=== PATIENT | female | born 1940 | race Caucasian/White ===

== ENCOUNTER → 2018-02-13 | Outpatient (CLI) | payer OTHER, MEDICARE | LOC: RAD 11:28 | DX: J44.9 Chronic obstructive pulmonary disease, unspecified (principal); R91.8 Other nonspecific abnormal finding of lung field; M40.294 Other kyphosis, thoracic region ==

== ENCOUNTER → 2018-06-08 | Outpatient (CLI) | payer OTHER, MEDICARE ==
[2018-06-08 12:34] LABS: CALCIUM 9.2 mg/dL (8.5-10.1); CREATININE 0.8 mg/dL (0.6-1.0); POTASSIUM 4.2 mmol/L (3.5-5.1)
== END ==
LOC: CAT 11:38
PROVIDERS: Nurse Practitioner
DX: G45.9 Transient cerebral ischemic attack, unspecified (principal); I77.810 Thoracic aortic ectasia; H54.62 Unqualified visual loss, left eye, normal vision right eye

== ENCOUNTER 2018-12-02 11:41 | Inpatient (IN) | payer OTHER, MEDICARE ==
[~2018-12-02] VITALS: Ht 152.4 cm; Wt 65.3 kg
[2018-12-02 12:29] VITALS: BP 135/61
[2018-12-02 13:14] LABS: HEMATOCRIT 40.3 % (37.0-47.0); HEMOGLOBIN 13.6 gm/dL (12.0-15.0); MCH 32.7 pg (26.0-34.0); MCHC 33.8 g/dL (28.0-37.0); MCV 96.7 fL (80.0-100.0); RBC 4.17 mil/uL (4.20-5.00); RDW 15.6 % (10.5-14.5); WBC 11.3 thou/uL (4.0-11.0)
[2018-12-02 13:34] LABS: ALBUMIN 3.2 g/dL (3.4-5.0); CREATININE 0.9 mg/dL (0.6-1.0); POTASSIUM 4.5 mmol/L (3.5-5.1); TOTAL BILIRUBIN 0.6 mg/dL (<0.1-1.0); TOTAL PROTEIN 6.5 g/dL (6.4-8.2)
[2018-12-02 13:49] VITALS: BP 114/64
[2018-12-02] MEDS ORDERED: SYNTHROID75 MCG PO (15:04)
[2018-12-02] MEDS ORDERED: PREDNISONE 10 M10 MG PO (15:05)
--- NOTE | 2018-12-02 16:11 | NUR ---
PATIENT ARRIVE DIRECT ADMISSION FROM DR SEYMOUR'S OFFICE FOR PNEUMONIA AND HYPOXIA. A/OX4, LUNGS COURSE WITH NON PRODUCTIVE COUGH WITH POOR EFFECTIVENESS. EDEMA IN BILATERAL LE. UP WITH ASSITANCE X1 SOA WHEN AMBULATING. USES WALKER AT HOME BUT RECENTLY USING WHEELCHAIR. ADMISSION ASSESMENT AND HISTORY COMPLETED. ORDERS ACKNOWLDGED AND IMPLIMEMENT. FALL PRECAUTION IN PLACE. CALL LIGHT IN REACH.
[2018-12-02 20:34] VITALS: BP 127/57
--- NOTE | 2018-12-03 02:27 | NUR ---
Assumed care at 1845. Pt resting in bed with family at bedside. Family requested breathing treatment to PRN instead of scheduled. Informed who agreed. She still having a non-productive. She has tremors that are mostly predominant in her arms, she stated that was her baseline. Call light within reach. No identified needs at the moment. Will continue to monitor.
[2018-12-03 05:07] VITALS: BP 132/60
[2018-12-03 07:39] VITALS: BP 142/43
[2018-12-03 08:00] VITALS: BP 118/63
--- NOTE | 2018-12-03 09:55 | NUR ---
chart review. cm visited with pt and at bedside. intro to cm, and transition of care. noted pt on oxygen per nasal canula. pt reported with rest time during verbal conversation " home with [address] then 3 more to front door, 12 up to next level , then 12 more down to garage. have cane and walker after fx pelvic in sept. have 2 grab bars in shower, shower chair. nebulizer at home and took them when this started few days ago. independent at home. home health chcs before. have family support and 1 of 4 daughter is nurse. rehab in past, and i will just be going home after discharged from hospital. would like to know what medication i took this morning, only on thyroid and prednisone tapering at home"?/maged. cm passed on medication question to bedside nurse. will cont following as needed for dc needs. dcp home vs home with chcs
--- NOTE | 2018-12-03 11:59 | NUR ---
ASSUMED CARE 0700. ALERT X4. DENIES PAIN. VSS. LUNGS COARSE REQUEST RT FOR BREATHING TREATMENT. RT WILL FOLLOW UP WITH PT IN 4 HOURS. BEDSIDE COMMODE WITH ASSIST X1. FALL PRECAUTIONS IN PLACE CALLS APPROPRIATELY.
[2018-12-03 19:31] VITALS: BP 110/53
--- NOTE | 2018-12-04 03:35 | NUR ---
SLEPT MOST OF SHIFT WITH DAUGHTER AT BEDSIDE. DISCUSSED CARE WITH AND SHE WANTED MOMS PREDNISONE ORDERED AND IV FLUIDS DC. NOTIFIED DR SEYMOUR AND ORDERS RECIEVED. DISCUSSED NEED TO SIT UP WITH MEALS AND GET UP FREQUENTLY DURING DAY. PATIENT TURNS SELF WITHOUT DIFFICULTY. ASSIST UP TO COMODE NEEDED WITH MINIMAL ASSIST. PATIENT WITH INCREASED SHORTNESS OF AIR WITH ACITIVITY AND NEEDS REST PERIODS. MAINTAIN SAFE ENVIRONMENT. DAUGTER REMAINS AT BEDISIDE. CONTINUE TO ASSES CLOESLY.
[2018-12-04 04:38] VITALS: BP 122/64
[2018-12-04 08:48] LABS: HEMATOCRIT 39.3 % (37.0-47.0); HEMOGLOBIN 13.3 gm/dL (12.0-15.0); MCH 32.6 pg (26.0-34.0); MCHC 33.7 g/dL (28.0-37.0); MCV 96.7 fL (80.0-100.0); RBC 4.07 mil/uL (4.20-5.00); RDW 15.5 % (10.5-14.5); WBC 10.7 thou/uL (4.0-11.0)
[2018-12-04 08:57] LABS: CALCIUM 9.5 mg/dL (8.5-10.1); CREATININE 0.7 mg/dL (0.6-1.0); POTASSIUM 4.2 mmol/L (3.5-5.1)
[2018-12-04 10:51] VITALS: BP 125/65
[2018-12-04 14:32] VITALS: BP 114/53
[2018-12-04 20:15] VITALS: BP 132/66
--- NOTE | 2018-12-05 03:25 | NUR ---
PATIENT IS ALERT AND ORIENTED. OWN. PATIENT IS UP TIMES ONE TO BS. PATIENT IS HAS TREMORS. PATIENTS LBM WAS THE 21ST. PATIENT IS ON 3.5L NC WHICH IS NOT BASELINE. PATIENT BEBOICALY USES A WHEELE CHAIR AT HOME. PATIENT CAN'T HAVE CAFFINE. PATIENT HAS LOWER EXTRMITY EDEMA. PATIENT DOES NOT WANT ENOXAPARIN PATIENT HAS SCDS. PATIENT IS RESTING COMFORTABLY IN BED. WCM. DENIES PAIN.
[2018-12-05 04:40] VITALS: BP 138/75
[2018-12-05 07:15] VITALS: BP 139/70
[2018-12-05 13:52] VITALS: BP 142/73
--- NOTE | 2018-12-05 15:41 | NUR ---
pt stable throughout shift. pt transferred to sr. suites. report called to Samara.
--- NOTE | 2018-12-05 16:08 | NUR ---
PT IS A&0X4, ARRIVED TO UNIT ABOUT 1600 ACCOMPANIED BY FAMILY. INTRO'D SELF AND SURROUNDINGS TO PT, REMINDED HER OF CALL LIGHT USE, NOTED VS, 92% ON 3L DOES NOT WEAR 02 AT HOME. ENCOURAGED HER ON FLUTTER VALVE AND DEEP BREATHING TO HELP WITH LUNGS. SHE IS COMPLYING, ASKED PT AND FAMILY IF THEY NEEDED ANY MORE DRINKS AND SNACKS. ENCOURAGED PT TO USE CALL LIGHT FOR ANY NEEDS
[2018-12-05 20:12] VITALS: BP 152/80
--- NOTE | 2018-12-06 04:40 | NUR ---
Assumed Pt. care at 1900. Remains A&Ox4. Swallows meds whole w/o difficulty. Remains cont. B&B; needs asst x 1 to BSC. Pt. KAIBAB w/ hearing aides. 02 intact at 3LNC; no SOB noted. Remains on IVABT/PNA; no adverse reactions noted. SL noted to L wrist; flushed w/ NS w/o difficulty. Breathing txs, as ordered, w/o difficulty. Tremors noted. Pt. has no c/o pain or discomfort. No s/s of acute distress noted. Pt. in bed asleep w/ call light/desired belongings withn reach. PO fluids encouarged. Will continue to monitor. Daughter at bedisde.
[2018-12-06 08:00] VITALS: BP 133/72
--- NOTE | 2018-12-06 15:23 | NUR ---
ASSUMED PATIENT AND CARES AT 0715, PATIENT SITTING UP IN BED WITH DAUGHTER AT BEDSIDE, A&OX4, DENIES PAIN AND DISCOMFORT, O2@3L/NC, KIANA, LEFT WRIST IV INTACT, TREMORS TO BUE NOTED, PERSONAL BELONGINGS AND CALL LIGHT IN REACH, WILL CONTINUE TO MONITOR
[2018-12-06 20:58] VITALS: BP 134/72
[2018-12-06 22:08] VITALS: BP 134/72
--- NOTE | 2018-12-07 05:12 | NUR ---
Assumed pt. care at 1900. Remains A&Ox4; Swallows meds whole w/o difficulty. Remains cont. B&B. Ambulates w/ asst of walker to bathroom/BSC. Remains on IVABT/pneumonia; no adverse reactions noted. SL noted to LFA; flushed w/o difficulty. 02 intact at 3LNC; SOB noted upon excertion. No cough noted, at this time. Lungs diminshed in all reyes. Breathing txs, as ordered, w/o difficulty. Trace edema noted to BLEs; BLEs elevated as tolerated. Patient has no c/o pain or discomfort. No s/s of acut distress noted. Patient asleep in bed w/ call light/desired belongings within reach and daughter at bedside. Will continue to monitor.
--- NOTE | 2018-12-07 06:42 | NUR ---
NOTES, DOCUMENTATION AND ASSESSMENT READ AND AGREE PER RN
[2018-12-07 07:42] VITALS: BP 143/79
[2018-12-07] MEDS ORDERED: PREDNISONE 20 M20 M1 PO (12:32)
[2018-12-07] MEDS ORDERED: CEFDINIR300 MG PO (12:32)
--- NOTE | 2018-12-07 12:55 | NUR ---
ASSUMED CARE OF PATIENT THIS MORNING. PATIENT IS A&OX4. SHE GETS UP W/SBA AND WALKER. SHE HAS TREMORS. SHE DOES NOT COMPLAIN OF ANY PAIN. PATIENT WILL DISCHARGE HOME TODAY. IV WILL BE REMOVED. SHE GETS SOA ON EXERTION. SHE WILL NOT GO HOME ON ANY OXYGEN. SHE IS CONTINENT OF BOWEL AND BLADDER. BOWEL SOUNDS WERE HYPOACTIVE THIS MORNING. SHE ONLY RECEIVED AN IV ANTIBIOTIC THIS MORNING. PATIENT IS CURRENTLY LYING IN BED WITH CALL LIGHT WITHIN REACH. SHE CALLS OUT APPROPRIATELY FOR ASSISTANCE.
[2018-12-07 13:55] VITALS: BP 143/79
--- NOTE | 2018-12-07 13:58 | NUR ---
I AGREE WITH NURSING ASSESSMENT DONE BY JEFF/MARINA.
--- NOTE | 2018-12-07 15:24 | NUR ---
PATIENT WILL BE GETTING DISCHARGED HOME WITH SELF CARE. IV REMOVED. SHE WILL GO HOME WITH TWO PRESCRIPTIONS. DISCHARGE INSTRUCTIONS REVIEWED WITH PATIENT AND .
--- NOTE | 2018-12-09 11:45 | NUR ---
Pt dc'd to home with outpt followup. No HH needs indicated.
== END 2018-12-07 17:30 | disposition home or self-care (01) | DRG 871 ==
LOC: 4W 11:41 → SICU 12-05 16:06 → ENTRNSPT 12-07 17:05 → SICU 12-07 17:30
PROVIDERS: ADMIT Family Medicine
DX: A41.9 Sepsis, unspecified organism (principal); J18.9 Pneumonia, unspecified organism; E11.9 Type 2 diabetes mellitus without complications; I10 Essential (primary) hypertension; I25.10 Atherosclerotic heart disease of native coronary artery without angina pectoris; E78.5 Hyperlipidemia, unspecified; J45.909 Unspecified asthma, uncomplicated; E03.9 Hypothyroidism, unspecified; K21.9 Gastro-esophageal reflux disease without esophagitis; E66.9 Obesity, unspecified; Z68.28 Body mass index [BMI] 28.0-28.9, adult
CPT/HCPCS: 10047; 15002

== ENCOUNTER → 2018-12-29 | Outpatient (CLI) | payer OTHER, MEDICARE ==
[~2018-12-29] MED LIST: CEFDINIR300 MG PO; PREDNISONE 10 M10 MG PO; PREDNISONE 20 M20 M1 PO; SYNTHROID75 MCG PO
== END ==
LOC: RAD 11:38
DX: J98.4 Other disorders of lung (principal); J69.0 Pneumonitis due to inhalation of food and vomit

== ENCOUNTER → 2019-04-12 | Outpatient (CLI) | payer OTHER, MEDICARE | LOC: RAD 01:14 | DX: Z12.31 Encounter for screening mammogram for malignant neoplasm of breast (principal); M81.0 Age-related osteoporosis without current pathological fracture; E28.39 Other primary ovarian failure ==

== ENCOUNTER → 2021-07-18 | Outpatient (CLI) | payer OTHER, MEDICARE | LOC: NUC 11:02 | PROVIDERS: ATTEND Nurse Practitioner | DX: M81.0 Age-related osteoporosis without current pathological fracture (principal) ==

== ENCOUNTER → 2021-08-16 | Outpatient (CLI) | payer OTHER, MEDICARE | LOC: RAD 11:36 | PROVIDERS: ATTEND Pediatrics | DX: J98.4 Other disorders of lung (principal); J45.40 Moderate persistent asthma, uncomplicated ==